=== PATIENT | female | born 1995 | race Caucasian/White ===

== ENCOUNTER 2023-09-01 10:49 | Emergency (ER) | payer SELFPAY ==
[2023-09-01 10:52] VITALS: BP 150/99; PULSE 88; RESP 18; TEMP 36.5; O2SAT 100
--- NOTE | 2023-09-01 12:14 | PC.NURSE ---
pt LWBS, ambulated out of Dept with steady gait
== END 2023-09-01 13:33 | disposition left against medical advice (07) ==
LOC: ANHED 12:19
DX: R42 Dizziness and giddiness (principal)
CPT/HCPCS: 99199